=== PATIENT | female | born 1990 | race African-American/Black ===

== ENCOUNTER 2016-07-30 21:27 | Emergency (ER) | payer OTHER ==
[2016-07-30] MEDS ORDERED: ALBUTEROL SO4 0.083% IH SOL 2.5 MG/3 ML VIAL.NEB. NEB ONE (21:32)
[2016-07-30 21:36] VITALS: TEMP 97.8; BMI 50.8
[2016-07-30] MEDS ORDERED: ALBUTEROL SO4 0.5 % INH SOLN 2.5 MG/0.5 ML VIAL.NEB. NEB ONE (21:36)
[2016-07-30] MEDS ORDERED: predniSONE 20 MG TABLET (UD) PO ONE (21:58)
[2016-07-30] MEDS ORDERED: SODIUM CHLORIDE 500 ML IV STA (22:00)
[2016-07-30] MEDS ORDERED: MAGNESIUM SULF 50% (8.12 MEQ/2 ML-1 GM VIAL) IVPB ONE (22:00)
[2016-07-30] MEDS ORDERED: methylPREDNISolone NA SUCC 125 MG/2 ML VIAL IVPB ONE (22:01)
[2016-07-30] MEDS ORDERED: ALBUTEROL SO4 2.5/IPRATROPIUM 0.5 INH SOL 3 ML VIAL.NEB. NEB ONE ×2 (22:17→22:51)
--- NOTE | 2016-07-30 22:20 | PDOC ---
History of Present Illness - General Chief Complaint: Wheezing Stated Complaint: ASTHMA Time Seen by Provider: 07/30/16 21:44 History Source: Patient - History of Present Illness Initial Comments: 07/30/16 22:01 25 year old female with wheezing and cough since 7pm after cigarette exposure. patient reports that last asthma exacerbation 2 months ago. reports multiple admissions to hospital for asthma Past History - Past Medical History Allergies/Adverse Reactions: Allergies Allergy/AdvReac Type Severity Reaction Status Date / Time strawberry Allergy Verified 07/30/16 21:29 SEAFOOD Allergy Vomiting Uncoded 07/30/16 21:29 Home Medications: Ambulatory Orders Prednisone [Deltasone -] 40 mg PO DAILY #8 tablet 07/31/16 Asthma: Yes Suicide Attempt (Hx): No - Immunization History Immunization Up to Date: Yes - Psycho/Social/Smoking Cessation Hx Anxiety: No Suicidal Ideation: No Smoking Status: No Smoking History: Never smoked Have you smoked in the past 12 months: No Number of Cigarettes Smoked Daily: 0 Hx Alcohol Use: No Drug/Substance Use Hx: No Substance Use Type: None Review of Systems - Review of Systems Able to Perform ROS?: Yes Is the patient limited Sinhala proficient: No HEENTM: No: Symptoms Reported, See HPI, Eye Pain, Blurred Vision, Tearing, Recent change in vision, Double Vision, Cataracts, Ear Pain, Ocular Prothesis, Ear Discharge, Nose Pain, Nose Congestion, Tinnitus, Nose Bleeding, Hearing Loss , Throat Pain, Throat Swelling, Mouth Pain, Dental Problems, Difficulty Swallowing, Mouth Swelling, Other Respiratory: Yes: Cough, SOB at Rest, Wheezing Cardiac (ROS): No: Symptoms Reported, See HPI, Chest Pain, Edema, Irregular Heart Rate, Lightheadedness, Palpitations, Syncope, Chest Tightness, Other ABD/GI: No: Symptoms Reported, See HPI, Abdominal Distended, Abd. Pain w/ defecation, Blood Streaked Bowels, Constipated, Diarrhea, Difficulty Swallowing , Nausea, Poor Appetite, Poor Fluid Intake, Rectal Bleeding, Vomiting, Indigestion, Abdominal cramping, Tarry Stools, Other *Physical Exam - Vital Signs Last Vital Signs Temp Pulse Resp BP Pulse Ox 97.8 F 96 H 20 150/90 93 L 07/30/16 21:35 07/30/16 21:35 07/30/16 21:35 07/30/16 21:35 07/30/16 21:35 - Physical Exam General Appearance: Yes: Appropriately Dressed Respiratory/Chest: positive: Decreased Breath Sounds (through out) Cardiovascular: positive: Regular Rhythm, Regular Rate Gastrointestinal/Abdominal: positive: Normal Bowel Sounds, Soft Extremity: positive: Normal Capillary Refill, Normal Inspection, Normal Range of Motion Integumentary: positive: Normal Color, Dry, Warm Neurologic: positive: Fully Oriented, Alert, Normal Mood/Affect ED Treatment Course - LABORATORY CBC & Chemistry Diagram: 07/30/16 22:34 07/30/16 22:34 - Medications Given in the ED: ED Medications Discontinued Medications Generic Name Dose Route Start Last Admin Trade Name Freq PRN Reason Stop Dose Admin Albuterol Sulfate 2 amp 07/30/16 21:36 07/30/16 21:36 Ventolin 0.5% - NEB 07/30/16 21:37 2 amp NOW ONE Administration Progress Note - Progress Note Progress Note: A: asthma exacerbation P: duoneb x3 solumedrol magnesium. *DC/Admit/Observation/Transfer Diagnosis at time of Disposition: Asthma exacerbation - Discharge Dispostion Disposition: HOME - Prescriptions Prescriptions: Prednisone [Deltasone -] 40 mg PO DAILY #8 tablet - Referrals Referrals: Issac Pettit [Primary Care Provider] - - Patient Instructions Printed Discharge Instructions: DI for Asthma -- Adult Additional Instructions: take prednisone as prescribed. take albuterol 2 puffs every 4 hours as needed for cough. follow up with your doctor as soon as possible. - Post Discharge Activity Work/School Note: Back to Work
[2016-07-30] MEDS: ALBUTEROL SO4 2.5/IPRATROPIUM 0.5 INH SOL 3 ML VIAL.NEB. NEB SCH ×3 (22:40→22:45)
[2016-07-30 22:45] LABS: MCH 28.9 pg (25.7-33.7); MCHC 32.8 g/dl (32.0-36.0); MEAN CELL VOLUME 88.2 fl (80-96); MEAN PLT VOLUME 9.3 fl (7.5-11.1); PLATELET COUNT 188 K/MM3 (134-434); RDW 12.3 % (11.6-15.6)
[2016-07-30] MEDS ORDERED: MAGNESIUM SULF 50% (8.12 MEQ/2 ML-1 GM VIAL) ONE (22:51)
[2016-07-30] MEDS ORDERED: methylPREDNISolone NA SUCC 125 MG/2 ML VIAL ONE (22:51)
[2016-07-30 23:07] LABS: ALBUMIN 3.4 g/dl (3.4-5.0); ANION GAP 10 (8-16); CALCIUM 8.4 mg/dL (8.5-10.1); CO2 25 mmol/L (21-32); CREATININE 0.8 mg/dL (0.55-1.02); GLUCOSE,RANDOM 111 mg/dL (74-106); SGOT/AST 14 U/L (15-37); SGPT/ALT 20 U/L (12-78)
[2016-07-30 23:09] LABS: ALK PHOS 59 U/L (45-117); BILIRUBIN,TOTAL 0.4 mg/dL (0.2-1.0); TOT PROT 6.9 g/dl (6.4-8.2)
--- NOTE | 2016-07-30 23:12 | PDOC ---
*Physical Exam - Vital Signs Last Vital Signs Temp Pulse Resp BP Pulse Ox 97.8 F 96 H 20 150/90 93 L 07/30/16 21:35 07/30/16 21:35 07/30/16 21:35 07/30/16 21:35 07/30/16 21:35 ED Treatment Course - LABORATORY CBC & Chemistry Diagram: 07/30/16 22:34 07/30/16 22:34 - ADDITIONAL ORDERS Additional order review: Laboratory Results 07/30/16 22:34 Serum , Qual Negative 07/30/16 22:34 RBC 4.55 MCV 88.2 MCHC 32.8 RDW 12.3 MPV 9.3 - Medications Given in the ED: ED Medications Discontinued Medications Generic Name Dose Route Start Last Admin Trade Name Manny PRN Reason Stop Dose Admin Albuterol Sulfate 2 amp 07/30/16 21:36 07/30/16 21:36 Ventolin 0.5% - NEB 07/30/16 21:37 2 amp NOW ONE Administration Albuterol/Ipratropium 1 amp 07/30/16 22:00 07/30/16 22:41 Duoneb - NEB 07/30/16 22:46 1 amp Q15M KEDAR Administration Sodium Chloride 500 mls @ 500 mls/hr 07/30/16 22:00 07/30/16 22:55 Normal Saline - IV 07/30/16 22:59 500 mls/hr ASDIR STA Administration Magnesium Sulfate 2 gm 07/30/16 22:00 07/30/16 22:50 Magnesium Sulfate IVPB 07/30/16 22:01 2 gm ONCE ONE Administration Methylprednisolone Sodium Succinate 125 mg 07/30/16 22:01 07/30/16 22:50 Solu-Medrol - IVPB 07/30/16 22:02 125 mg ONCE ONE Administration Prednisone 60 mg 07/30/16 21:58 07/30/16 23:08 Deltasone - PO 07/30/16 21:59 Not Given ONCE ONE Medical Decision Making - Medical Decision Making 07/30/16 23:11 agree with care from KIMBERLY Cabral *DC/Admit/Observation/Transfer Diagnosis at time of Disposition: Asthma exacerbation - Prescriptions Prescriptions: Prednisone [Deltasone -] 40 mg PO DAILY #8 tablet Albuterol 0.083% Nebulizer Eva [Ventolin 0.083% Nebulizer Soln -] 1 neb NEB Q4H #100 vial - Referrals Referrals: Issac Pettit [Primary Care Provider] - - Patient Instructions Printed Discharge Instructions: DI for Asthma -- Adult Additional Instructions: take prednisone as prescribed. take albuterol 2 puffs every 4 hours as needed for cough. follow up with your doctor as soon as possible. - Post Discharge Activity Work/School Note: Back to Work
[2016-07-31] MEDS ORDERED: ALBUTEROL SO4 6.7 GM HFA INHALER IH ONE (00:26)
[2016-07-31 00:56] VITALS: BP 120/74; PULSE 80
== END 2016-07-31 02:46 | disposition home or self-care (01) ==
LOC: JER 21:27
PROC: 3E0F7GC Introduction of Other Therapeutic Substance into Respiratory Tract, Via Natural or Artificial Opening (ICD-10-PCS; principal; 2016-07-30)
PROC: 3E0F7GC Introduction of Other Therapeutic Substance into Respiratory Tract, Via Natural or Artificial Opening (ICD-10-PCS; 2016-07-30)
PROC: 3E0F7GC Introduction of Other Therapeutic Substance into Respiratory Tract, Via Natural or Artificial Opening (ICD-10-PCS; 2016-07-30)
PROC: 3E0337Z Introduction of Electrolytic and Water Balance Substance into Peripheral Vein, Percutaneous Approach (ICD-10-PCS; 2016-07-30)
PROC: 3E0333Z Introduction of Anti-inflammatory into Peripheral Vein, Percutaneous Approach (ICD-10-PCS; 2016-07-30)
PROC: 3E033GC Introduction of Other Therapeutic Substance into Peripheral Vein, Percutaneous Approach (ICD-10-PCS; 2016-07-30)
DX: J45.901 Unspecified asthma with (acute) exacerbation (principal); Z77.22 Contact with and (suspected) exposure to environmental tobacco smoke (acute) (chronic)
CPT/HCPCS: 36415; 80053; 84703; 85027; 99282-25

== ENCOUNTER 2016-09-24 09:49 | Emergency (ER) | payer OTHER ==
[2016-09-24 09:55] VITALS: BP 141/86; PULSE 98; TEMP 98.2; BMI 45.5
[2016-09-24] MEDS ORDERED: KETOROLAC TROMETHAMINE 60 MG/2 ML VIAL IM ONE (10:25)
--- NOTE | 2016-09-24 10:29 | PDOC ---
History of Present Illness - General Chief Complaint: Cold Symptoms Stated Complaint: COLD SYMPTOMS Time Seen by Provider: 09/24/16 10:05 History Source: Patient Exam Limitations: No Limitations - History of Present Illness Initial Comments: 09/24/16 10:25 Patient is here with complaints of cough and cold-like symptoms for the next 2 days. States temperature last night was 103, took Tylenol with some resolved. States has body aches a lot of postnasal drainage, and a moist cough that is nonproductive. 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 Timing/Duration: reports: getting worse Severity: reports: mild, moderate Associated Symptoms: reports: chest pain/soreness, cough, fever/chills, headache , nasal congestion, nasal drainage, sore throat Past History - Travel Traveled outside of the country in the last 30 days: No Close contact w/someone who was outside of country & ill: No - Past Medical History Allergies/Adverse Reactions: Allergies Allergy/AdvReac Type Severity Reaction Status Date / Time strawberry Allergy Verified 09/24/16 09:51 SEAFOOD Allergy Vomiting Uncoded 09/24/16 09:51 Home Medications: Ambulatory Orders Albuterol 0.083% Nebulizer Eva [Ventolin 0.083% Nebulizer Soln -] 1 neb NEB Q4H #100 vial 07/31/16 Prednisone [Deltasone -] 40 mg PO DAILY #8 tablet 07/31/16 Naproxen [Naprosyn -] 500 mg PO BID #30 tablet 09/24/16 Asthma: Yes Suicide Attempt (Hx): No - Immunization History Immunization Up to Date: Yes - Psycho/Social/Smoking Cessation Hx Anxiety: No Suicidal Ideation: No Smoking Status: No Smoking History: Never smoked Have you smoked in the past 12 months: No Number of Cigarettes Smoked Daily: 0 Hx Alcohol Use: No Drug/Substance Use Hx: No Substance Use Type: None Review of Systems - Review of Systems Able to Perform ROS?: Yes Is the patient limited Greenlandic proficient: Yes Constitutional: Yes: Symptoms Reported, See HPI, Chills, Fever, Loss of Appetite , Malaise, Weakness HEENTM: Yes: Symptoms Reported, See HPI, Nose Congestion, Throat Pain Respiratory: Yes: Symptoms reported, See HPI, Cough (nonproductive). No: Shortness of Breath, Wheezing Musculoskeletal: No: Symptoms Reported Integumentary: Yes: See HPI. No: Symptoms Reported Neurological: Yes: Symptoms reported, See HPI, Headache (frontal) All Other Systems: Reviewed and Negative *Physical Exam - Vital Signs Last Vital Signs Temp Pulse Resp BP Pulse Ox 98.2 F 98 H 19 141/86 97 09/24/16 09:51 09/24/16 09:51 09/24/16 09:51 09/24/16 09:51 09/24/16 09:51 - Physical Exam General Appearance: Yes: Nourished, Appropriately Dressed, Apparent Distress HEENT: positive: CRISTOBAL, Normal ENT Inspection, TMs Normal (left occluded with cerumen, right congested but easily visualize landmarks), Pharynx Normal (no swellign or exudate), Rhinorrhea (clear), Sinus Tenderness (mild frontal) Neck: positive: Supple, Lymphadenopathy (R), Lymphadenopathy (L). negative: Tender Respiratory/Chest: positive: Lungs Clear (course but clear), Normal Breath Sounds Cardiovascular: positive: Regular Rate Gastrointestinal/Abdominal: positive: Normal Bowel Sounds, Soft. negative: Tender Musculoskeletal: positive: Normal Inspection. 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 We'll treat patient conservatively as there is no indication for bacterial infection *DC/Admit/Observation/Transfer Diagnosis at time of Disposition: URI, acute - Discharge Dispostion Disposition: HOME Condition at time of disposition: Stable Admit: No - Referrals Referrals: Issac Pettit [Primary Care Provider] - - Patient Instructions Printed Discharge Instructions: DI for Viral Upper Respiratory Infection -- Adult Additional Instructions: Rest, drink lots of fluids: Teas, water, soups, Pedialyte Saltwater gargles Steamy showers/seem to face break up mucus Avoid contact with others until fevers and cough resolved Lots of handwashing and good hygiene Continue [id number] medications for symptomatic relief Tylenol or Motrin for fever and pain Followup with private physician in one to 2 days as needed Return to emergency department for worsened symptoms, fevers, dehydration - Post Discharge Activity Work/School Note: Back to Work
[2016-09-24] MEDS ORDERED: KETOROLAC TROMETHAMINE 60 MG/2 ML VIAL ONE (10:31)
== END 2016-09-24 11:30 | disposition home or self-care (01) ==
LOC: JERFT 09:49
PROC: 3E0233Z Introduction of Anti-inflammatory into Muscle, Percutaneous Approach (ICD-10-PCS; principal; 2016-09-24)
DX: J06.9 Acute upper respiratory infection, unspecified (principal); B97.89 Other viral agents as the cause of diseases classified elsewhere
CPT/HCPCS: 87070; 87430; 87804; 99281-25

== ENCOUNTER 2016-09-25 22:46 | Emergency (ER) | payer OTHER ==
[2016-09-25 22:59] VITALS: BP 140/94; PULSE 99; TEMP 97.9; BMI 44.9
[2016-09-26] MEDS ORDERED: SODIUM CHLORIDE 1,000 ML IV STA (00:12)
[2016-09-26] MEDS ORDERED: OXYCODONE/APAP 5/325MG COMBO TABLET PO ONE (00:13)
[2016-09-26] MEDS ORDERED: OXYCODONE/APAP 5/325MG COMBO TABLET ONE (00:27)
[2016-09-26 00:46] LABS: BASOPHIL 0.2 % (0-2.0); EOSINOPHIL 2.3 % (0-4.5); MCH 29.2 pg (25.7-33.7); MCHC 32.6 g/dl (32.0-36.0); MEAN CELL VOLUME 89.6 fl (80-96); MEAN PLT VOLUME 9.5 fl (7.5-11.1); NEUTROPHILS 65.3 % (42.8-82.8); PLATELET COUNT 180 K/MM3 (134-434); RDW 12.4 % (11.6-15.6); WHITE BLOOD COUNT 10.4 K/mm3 (4.0-10.0)
--- NOTE | 2016-09-26 00:47 | PDOC ---
History of Present Illness - History of Present Illness Initial Comments: 09/26/16 00:41 25 yo F with h/o morbid obesity, and recent viral URI who presents with sore throat. Recently evaluated in ED yesterday for pharyngitis. Pt. returns to ED with worsening symptoms of odynophagia, and yellow sputum production. Also endorses left sided nasal congestion, otalgia, cough, rhinorrhea, lacrimation. States that she had elevated oral temp 24 hours ago (103). Pain not alleviated with OTC Motrin and Tylenol. <Lane Zuluaga - Last Filed: 09/26/16 01:12> <Armida Myers - Last Filed: 09/26/16 01:36> - General Chief Complaint: Pain Stated Complaint: COLD SYMPTOMS Time Seen by Provider: 09/25/16 23:53 Past History - Past Medical History Asthma: Yes Suicide Attempt (Hx): No - Immunization History Immunization Up to Date: Yes - Psycho/Social/Smoking Cessation Hx Anxiety: No Suicidal Ideation: No Smoking Status: No Smoking History: Never smoked Have you smoked in the past 12 months: No Number of Cigarettes Smoked Daily: 0 Information on smoking cessation initiated: No Hx Alcohol Use: No Drug/Substance Use Hx: No Substance Use Type: None <Lane Zuluaga - Last Filed: 09/26/16 01:12> <Armida Myers - Last Filed: 09/26/16 01:36> - Past Medical History Allergies/Adverse Reactions: Allergies Allergy/AdvReac Type Severity Reaction Status Date / Time strawberry Allergy Verified 09/25/16 22:57 SEAFOOD Allergy Vomiting Uncoded 09/25/16 22:57 Home Medications: Ambulatory Orders Albuterol 0.083% Nebulizer Eva [Ventolin 0.083% Nebulizer Soln -] 1 neb NEB Q4H #100 vial 07/31/16 Prednisone [Deltasone -] 40 mg PO DAILY #8 tablet 07/31/16 Naproxen [Naprosyn -] 500 mg PO BID #30 tablet 09/24/16 *Physical Exam - Vital Signs Last Vital Signs Temp Pulse Resp BP Pulse Ox 97.9 F 99 H 19 140/94 99 09/25/16 22:57 09/25/16 22:57 09/25/16 22:57 09/25/16 22:57 09/25/16 22:57 - Physical Exam Comments: 09/26/16 00:58 GENERAL: Awake, alert, and fully oriented, in no acute distress HEAD: No signs of trauma, normocephalic, atraumatic EYES: PERRLA, EOMI, sclera anicteric, conjunctiva clear ENT: Neck TTP. Auricles normal inspection, hearing grossly normal, nares patent , oropharynx clear without exudates. Moist mucosa NECK: Normal ROM, supple, no lymphadenopathy, JVD, or masses LUNGS: No distress, speaks full sentences, clear to auscultation bilaterally HEART: Regular rate and rhythm, normal S1 and S2, no murmurs, rubs or gallops, peripheral pulses normal and equal bilaterally. ABDOMEN: Soft, nontender, normoactive bowel sounds. No guarding, no rebound. No masses EXTREMITIES: Normal inspection, Normal range of motion, no edema. No clubbing or cyanosis. NEUROLOGICAL: Cranial nerves II through XII grossly intact. Normal speech, normal gait, no focal sensorimotor deficits SKIN: Warm, Dry, normal turgor, no rashes or lesions noted. <Lane Zuluaga - Last Filed: 09/26/16 01:12> - Vital Signs Last Vital Signs Temp Pulse Resp BP Pulse Ox 97.9 F 99 H 19 140/94 99 09/25/16 22:57 09/25/16 22:57 09/25/16 22:57 09/25/16 22:57 09/26/16 01:12 <Armida Myers - Last Filed: 09/26/16 01:36> ED Treatment Course - LABORATORY CBC & Chemistry Diagram: 09/26/16 00:15 09/26/16 00:15 - Medications Given in the ED: ED Medications Discontinued Medications Generic Name Dose Route Start Last Admin Trade Name Freq PRN Reason Stop Dose Admin Oxycodone/Acetaminophen 1 combo 09/26/16 00:13 09/26/16 00:25 Percocet 5/325 - PO 09/26/16 00:14 1 combo ONCE ONE Administration <Lane Zuluaga - Last Filed: 09/26/16 01:12> - LABORATORY CBC & Chemistry Diagram: 09/26/16 00:15 09/26/16 00:15 - ADDITIONAL ORDERS Additional order review: Laboratory Results 09/26/16 09/26/16 00:15 00:13 Sodium 142 Potassium 3.5 Chloride 106 Carbon Dioxide 29 Anion Gap 7 L BUN 13 Creatinine 0.7 Creat Clearance w eGFR > 60 Random Glucose 87 D Calcium 8.6 Total Bilirubin 0.4 AST 12 L ALT 18 Alkaline Phosphatase 59 Total Protein 6.9 Albumin 3.7 Urine Color Yellow Urine Appearance Slcloudy Urine pH 5.0 Urine Protein 1+ H Urine Glucose (UA) Negative Urine Ketones Negative Urine Blood 1+ H Urine Nitrite Negative Urine Bilirubin Negative Urine Urobilinogen 4.0 e.u/dl H Ur Leukocyte Esterase Trace Urine RBC 1 Urine WBC 2 Ur Epithelial Cells Many Urine Bacteria Rare Urine Mucus Few 09/26/16 00:15 RBC 4.40 MCV 89.6 MCHC 32.6 RDW 12.4 MPV 9.5 Neutrophils % 65.3 D Lymphocytes % 18.9 D Monocytes % 13.3 H D Eosinophils % 2.3 D Basophils % 0.2 - Medications Given in the ED: ED Medications Discontinued Medications Generic Name Dose Route Start Last Admin Trade Name Manny PRN Reason Stop Dose Admin Sodium Chloride 1,000 mls @ 1,000 mls/hr 09/26/16 00:12 09/26/16 00:36 Normal Saline - IV 09/26/16 01:11 1,000 mls/hr ASDIR STA Administration Oxycodone/Acetaminophen 1 combo 09/26/16 00:13 09/26/16 00:25 Percocet 5/325 - PO 09/26/16 00:14 1 combo ONCE ONE Administration <Armida Myers - Last Filed: 09/26/16 01:36> Medical Decision Making - Medical Decision Making 09/26/16 00:58 26 yo F h/o morbid obesity and recent viral URI presents with sore throat. Pt. afebrile on presentation and physical exam benign. Stated that OTC analgesia has been infective at alleviating pain. Recent strep and influenza negative. Low suspicion for bacterial URI. Pt. endorses low fluid intake within 24 hours. DDx: Viral URI, dehydration ED course: CBC, CMP NS 1 L Percocet PO CBC, CMP, UA unremarkable <Lane Zuluaga - Last Filed: 09/26/16 01:12> *DC/Admit/Observation/Transfer <Lane Zuluaga - Last Filed: 09/26/16 01:12> - Discharge Dispostion Admit: No <Armida Myers - Last Filed: 09/26/16 01:36> Diagnosis at time of Disposition: Viral URI, Pharyngeal pain - Discharge Dispostion Disposition: HOME Condition at time of disposition: Stable - Referrals Referrals: Issac Pettit [Primary Care Provider] - - Patient Instructions Printed Discharge Instructions: DI for Viral Pharyngitis - Post Discharge Activity Work/School Note: Back to Work
[2016-09-26 00:58] LABS: URINE APPEARANCE SLCLOUDY; URINE BILIRUBIN NEGATIVE (NEGATIVE); URINE BLOOD 1+ (NEGATIVE); URINE COLOR YELLOW; URINE GLUCOSE (UA) NEGATIVE (NEGATIVE); URINE KETONE NEGATIVE (NEGATIVE); URINE LEUK ESTERASE TRACE (NEGATIVE); URINE NITRITE NEGATIVE (NEGATIVE); URINE UROBILINOGEN 4.0 E.U/dl mg/dL (0.2-1.0)
[2016-09-26 01:00] LABS: URINE PROTEIN 1+ (NEGATIVE)
[2016-09-26 01:02] LABS: URINE BACTERIA RARE /hpf (NONE SEEN); URINE MUCUS FEW; URINE RBC 1 /hpf (0-3); URINE WBC 2 /hpf (3-5)
[2016-09-26 01:05] LABS: ALBUMIN 3.7 g/dl (3.4-5.0); ALK PHOS 59 U/L (45-117); ANION GAP 7 (8-16); BILIRUBIN,TOTAL 0.4 mg/dL (0.2-1.0); CALCIUM 8.6 mg/dL (8.5-10.1); CO2 29 mmol/L (21-32); CREATININE 0.7 mg/dL (0.55-1.02); GLUCOSE,RANDOM 87 mg/dL (74-106); SGOT/AST 12 U/L (15-37); SGPT/ALT 18 U/L (12-78); TOT PROT 6.9 g/dl (6.4-8.2)
--- NOTE | 2016-09-26 01:23 | PDOC ---
Attending Attestation - Resident Resident Name: Lane Zuluaga - HPI HPI: 09/26/16 01:22 Pt comes with complaint of sore throat; she was seen here yesterday and diagnosed with viral pharyngitis. SHe is afebrile now and appears well. - Physicial Exam PE: 09/26/16 05:34 agree with exam of resident. Left TM occluded with wax; right TM normal. Pt has no pharyngeal erythema. Afebrile. No esophageal pain/ no sign of bacterial tracheitis. - Medical Decision Making 09/26/16 05:34 Pt has pharyngeal viral infection. No need for treatment other than pain meds. She has no fever at this time, no chills, no infection in her ears. Pt is requesting days off from work until Wednesday. Pt will be given days so that she may rest.
== END 2016-09-26 01:59 | disposition home or self-care (01) ==
LOC: JER 22:46
DX: J06.9 Acute upper respiratory infection, unspecified (principal); B97.89 Other viral agents as the cause of diseases classified elsewhere; E66.01 Morbid (severe) obesity due to excess calories; Z68.42 Body mass index [BMI] 45.0-49.9, adult
CPT/HCPCS: 36415; 80053; 81003; 81015; 85025; 99282-25

== ENCOUNTER 2016-12-18 10:28 | Emergency (ER) | payer OTHER ==
[2016-12-18 10:38] VITALS: BP 130/77; PULSE 70; TEMP 97.8; BMI 49.4
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
== END 2016-12-18 12:47 | disposition home or self-care (01) ==
LOC: JERFT 10:28
DX: S90.32XA Contusion of left foot, initial encounter (principal); Y00.XXXA Assault by blunt object, initial encounter; Y93.89 Activity, other specified; Y92.118 Other place in children's home and orphanage as the place of occurrence of the external cause; Y99.0 Civilian activity done for income or pay
CPT/HCPCS: 73630-TC-LT; 99281-25

== ENCOUNTER 2017-06-14 18:14 | Emergency (ER) | payer OTHER ==
[2017-06-14 18:18] VITALS: BMI 40.8
--- NOTE | 2017-06-14 18:19 | PDOC ---
Rapid Medical Evaluation Time Seen by Provider: 06/14/17 18:15 Medical Evaluation: Allergies Allergy/AdvReac Type Severity Reaction Status Date / Time strawberry Allergy Verified 06/14/17 18:15 SEAFOOD Allergy Vomiting Uncoded 06/14/17 18:15 04 18:15 I have performed a brief in-person evaluation of this patient. The patient presents with a chief complaint of:s/p gastric sleeve 3 weeks ago at [facility], p/w upper abd pain x 3 days, taking famotidine and gas-x with no relief , taking colace for constipation, no n/v/f, has surgery appt next month Pertinent physical exam findings:poorly localized ttp to upper abd I have ordered the following:labs The patient will proceed to the ED for further evaluation. 06/14/17 18:18
--- NOTE | 2017-06-14 18:31 | PDOC ---
History of Present Illness - General Chief Complaint: Pain Stated Complaint: PAIN/GASTRIC SLEEVE Time Seen by Provider: 06/14/17 18:15 History Source: Patient Exam Limitations: No Limitations - History of Present Illness Initial Comments: Pt is a 26F with PMHx of asthma, s/p gastric sleeve at [facility] 3 weeks ago, now presenting with heartburn. Pt describes burning sensation after eating soft foods and soups. The pain is 8/ 10 radiating to L back. The back pain feels like "something is stuck" and is relieved by having her back massaged, and jumping up and down. At 2weeks Post- op follow up with her bariatric surgeon, she had no complaints. She was in contact recently with the bariatric surgeons and asked to use antacids, with no relief with gasx and H2 antagonist. No fever, no chills, no palpitations or SOB. 06/14/17 18:52 06/14/17 19:11 06/14/17 19:21 Timing/Duration: intermittent Severity: moderate Modifying Factors: improves with: eating (worsened by eating) Associated Symptoms: reports: cough (associated non productive cough with the stuck sensation). denies: chest pain, fever/chills, loss of appetite, nausea/ vomiting, seizure, shortness of breath, syncope, weakness Past History - Travel Close contact w/someone who was outside of country & ill: No - Past Medical History Allergies/Adverse Reactions: Allergies Allergy/AdvReac Type Severity Reaction Status Date / Time strawberry Allergy Verified 06/14/17 18:15 SEAFOOD Allergy Vomiting Uncoded 06/14/17 18:15 Home Medications: Ambulatory Orders Multivitamin [Poly-Vitamin] 14 tab PO DAILY 06/14/17 Pantoprazole Sodium [Protonix -] 40 mg PO DAILY #7 tablet.ec 06/14/17 Asthma: Yes COPD: No Other medical history: MORBIDE OBESTIY - Surgical History Abdominal Surgery: Yes (GASTRIC SLEEVE) - Immunization History Immunization Up to Date: Yes - Suicide/Smoking/Psychosocial Hx Smoking Status: No Smoking History: Never smoked Have you smoked in the past 12 months: No Number of Cigarettes Smoked Daily: 0 Information on smoking cessation initiated: No Hx Alcohol Use: No Drug/Substance Use Hx: No Substance Use Type: None Review of Systems - Review of Systems Able to Perform ROS?: Yes Is the patient limited Ukrainian proficient: No Constitutional: Yes: Other (patient has lost 37lbs following the gastric sleeve 3 weeks ago). No: Chills, Diaphoresis, Fever, Loss of Appetite, Night Sweats, Weakness HEENTM: No: Throat Pain, Throat Swelling, Difficulty Swallowing, Other (feels food is stuck in chest) Respiratory: Yes: Cough (dry cough attempted to push out stuck food). No: Shortness of Breath, SOB at Rest Cardiac (ROS): No: Chest Pain, Edema, Syncope ABD/GI: Yes: Constipated (pt has been constipated on colace since after the sx) . No: Abdominal Distended, Blood Streaked Bowels, Poor Appetite, Vomiting : No: Burning, Dysuria, Hematuria Musculoskeletal: Yes: Back Pain (following food, relieved by massaging back) Integumentary: No: Bruising Neurological: No: Numbness, Paresthesia, Dizziness *Physical Exam - Vital Signs Last Vital Signs Temp Pulse Resp BP Pulse Ox 98.0 F 86 18 148/104 100 06/14/17 18:16 06/14/17 18:16 06/14/17 18:16 06/14/17 18:16 06/14/17 18:16 - Physical Exam General Appearance: Yes: Obese HEENT: positive: Pharynx Normal. negative: Pale Conjunctivae, Scleral Icterus ( L), Tonsillar Exudate Neck: positive: Supple Respiratory/Chest: positive: Lungs Clear, Normal Breath Sounds Cardiovascular: positive: Regular Rate, S1, S2 Gastrointestinal/Abdominal: positive: Tender (TTP epigastrium), Soft Extremity: negative: Pedal Edema, Swelling Integumentary: positive: Warm Neurologic: positive: Fully Oriented, Alert, Motor Strength 5/5 ED Treatment Course - LABORATORY CBC & Chemistry Diagram: 06/14/17 18:30 06/14/17 18:30 Medical Decision Making - Medical Decision Making With hx of gastric sleeve 3 weeks ago-dyspepsia is a known early and late complication. Pt spoke with the service of her bariatric surgeon and was asked to use antacids , -gasx and H2 lulu that did not seem to relieve her symptoms CBC- currently does not show leucocytosis or UA likely UTI Plan is to give iv pantoprazole 40mg and observe, and do EKG since she has elevated BP, and is obese to R/O ACS 06/14/17 19:07 We attempted to contact her surgeon, Dr Luevano at [facility] and they can only send messages to get back 24-48hrs. We wanted to clarify if we needed to image her for rupture, fluid, hematoma or abscess at the site. 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 Pt says she feels better after pantoprazole and wants to go home. We explained that we are trying to talk with a surgeon to see if they think she may have a more severe complication following the surgery that may require imaging such as CT w/contrast Lipase is within normal 06/14/17 20:43 06/14/17 20:48 Patient feels much better with protonix. She says she will be in the bariatric surgeon's office tomorrow to follow up since we have still not heard back form [facility]. She will follow up closely with him in the future. We will give her protonix PO and discharge her *DC/Admit/Observation/Transfer Diagnosis at time of Disposition: Heart burn - Discharge Dispostion Disposition: HOME Condition at time of disposition: Improved Admit: No - Prescriptions Prescriptions: Pantoprazole Sodium [Protonix -] 40 mg PO DAILY #7 tablet.ec - Referrals Referrals: Issac Pettit [Primary Care Provider] - - Patient Instructions Printed Discharge Instructions: Mini Gastric Bypass Additional Instructions: You came in with a history of heartburn that started 3 days ago. You recently had gastric sleeve surgery. We gave you protonix (an antacid) and you felt better. We tried to contact your bariatric surgeon to discuss your case with him but could not get in touch him Please follow up with him tomorrow as you have decided Follow up closely with your surgeon and discuss any new issues you notice with him We will send you home on 40mg pantoprazole to take by mouth daily Please follow up with your primary care doctor If you start to vomit, vomit blood, have chest pain and difficulty breathing or have high grade fever please go to the emergency room - Post Discharge Activity - Attestations Physician Attestion: 06/14/17 20:56 Komal Marshall MD
[2017-06-14] MEDS ORDERED: PANTOPRAZOLE SODIUM 40 MG VIAL IVPUSH ONE (18:50)
[2017-06-14] MEDS ORDERED: PANTOPRAZOLE SODIUM 40 MG/100 ML BAG IVPB ONE (18:56)
[2017-06-14 18:57] LABS: BASO % 0.6 % (0-2.0); EOS % 2.7 % (0-4.5); HEMATOCRIT 42.2 % (32.4-45.2); HEMOGLOBIN 14.3 GM/dL (10.7-15.3); LYMPH % 35.1 % (8-40); MCH 30.1 pg (25.7-33.7); MEAN CELL VOLUME 88.5 fl (80-96); MEAN PLT VOLUME 9.5 fl (7.5-11.1); MONO % 8.4 % (3.8-10.2); NEUT % 53.2 % (42.8-82.8); PLATELET COUNT 263 K/MM3 (134-434); RBC 4.77 M/mm3 (3.60-5.2); RDW 13.1 % (11.6-15.6); WHITE BLOOD COUNT 6.6 K/mm3 (4.0-10.0)
[2017-06-14 19:00] LABS: URINE APPEARANCE SLCLOUDY; URINE BLOOD NEGATIVE (NEGATIVE); URINE COLOR AMBER; URINE GLUCOSE (UA) NEGATIVE (NEGATIVE); URINE KETONE TRACE (NEGATIVE); URINE LEUK ESTERASE NEGATIVE (NEGATIVE); URINE NITRITE NEGATIVE (NEGATIVE); URINE UROBILINOGEN 4.0 E.U/dl mg/dL (0.2-1.0)
[2017-06-14 19:01] LABS: HCG,QUALITATIVE URINE NEGATIVE
[2017-06-14 19:05] LABS: URINE PROTEIN 1+ (NEGATIVE)
[2017-06-14 19:06] LABS: EPI CELLS RARE /HPF (FEW); URINE MUCUS MANY
[2017-06-14 19:26] LABS: ALBUMIN 3.8 g/dl (3.4-5.0); ANION GAP 5 (8-16); BLOOD UREA NITROGEN 6 mg/dL (7-18); CHLORIDE 108 mmol/L (98-107); CO2 28 mmol/L (21-32); CREATININE 0.8 mg/dL (0.55-1.02); GLUCOSE,RANDOM 96 mg/dL (74-106); POTASSIUM 3.7 mmol/L (3.5-5.1); SGOT/AST 16 U/L (15-37); SGPT/ALT 23 U/L (12-78); SODIUM 141 mmol/L (136-145)
[2017-06-14 19:27] LABS: ALK PHOS 43 U/L (45-117); BILIRUBIN,TOTAL 0.2 mg/dL (0.2-1.0); TOT PROT 7.3 g/dl (6.4-8.2)
--- NOTE | 2017-06-14 19:40 | PDOC ---
Attending Attestation - Resident Resident Name: Komal Marshall I - ED Attending Attestation I have performed the following: I have examined & evaluated the patient, The case was reviewed & discussed with the resident, I agree w/resident's findings & plan, Exceptions are as noted - HPI HPI: 06/14/17 19:37 Ms Sanchez is a 26 yo F with a history of asthma and morbid obesity who is 3 weeks s/p gastric sleeve who presents to the ER with a complaint of heart burn. Pt notes burning sensation after eating soft foods and soups. The pain is 8/10 radiating to L back. The back pain feels like "something is stuck" and is relieved by having her back massaged, and jumping up and down. Pt was seen in post op follow up by her surgeon, at that time, had no complaints She contact her surgeon regarding her symptoms, was told to use antacids States she got no relief. No fever, no chills, no chest pain, no palpitations or SOB. - Physicial Exam PE: 06/14/17 19:39 Physical Exam General Appearance: Yes: Obese HEENT: positive: Pharynx Normal. negative: Pale Conjunctivae, Scleral Icterus ( L), Tonsillar Exudate Neck: positive: Supple Respiratory/Chest: positive: Lungs Clear, Normal Breath Sounds Cardiovascular: positive: Regular Rate, S1, S2 Gastrointestinal/Abdominal: positive: Tender (TTP epigastrium), Soft Extremity: negative: Pedal Edema, Swelling Integumentary: positive: Warm Neurologic: positive: Fully Oriented, Alert, Motor Strength 5/5 - Medical Decision Making 06/14/17 19:40 Laboratory Tests 06/14/17 06/14/17 06/14/17 18:30 18:30 18:30 WBC 6.6 D Hgb 14.3 D Hct 42.2 Plt Count 263 D Sodium 141 Potassium 3.7 Chloride 108 H Carbon Dioxide 28 Anion Gap 5 L BUN 6 L Creatinine 0.8 Random Glucose 96 Urine Blood Negative Urine Nitrite Negative Ur Leukocyte Esterase Negative Urine WBC (Auto) 3 Urine RBC (Auto) 1 Urine HCG, Qual Negative 06/14/17 19:50 Will attempt to contact this patient's surgeon Will strongly consider imaging 06/15/17 03:53 Pt reported upon re assessment that she felt much better He pain had completely resolved She will see her surgeon tomorrow Will discharge on Protonix ? gastritis
[2017-06-14 20:11] LABS: LIPASE 130 U/L (73-393)
[2017-06-14 21:17] VITALS: BP 130/98; PULSE 80; TEMP 98.2
[2017-06-15] MEDS ORDERED: PANTOPRAZOLE 40 MG TABLET (FP) PO SCH (10:00)
--- NOTE | 2017-06-15 16:52 | EKG ---
Test Reason : Blood Pressure : / mmHG Vent. Rate : 074 BPM Atrial Rate : 074 BPM P-R Int : 146 ms QRS Dur : 094 ms QT Int : 354 ms P-R-T Axes : 022 -03 014 degrees QTc Int : 392 ms NORMAL SINUS RHYTHM NORMAL ECG NO PREVIOUS ECGS AVAILABLE Confirmed by MD Wilmer, Morris ([id number]) on 06/15/2017 4:51:56 PM Referred By: Confirmed By:Morris Guillen MD
== END 2017-06-14 21:17 | disposition home or self-care (01) ==
LOC: JER 18:14
PROC: 3E033GC Introduction of Other Therapeutic Substance into Peripheral Vein, Percutaneous Approach (ICD-10-PCS; principal; 2017-06-14)
DX: R10.13 Epigastric pain (principal); Z98.84 Bariatric surgery status; Z87.09 Personal history of other diseases of the respiratory system
CPT/HCPCS: 36415; 80053; 81003; 81015; 83690; 84703; 85025; 93005; 93010; 96374; 99283-25

== ENCOUNTER 2017-06-27 09:59 | Emergency (ER) | payer OTHER | END 2017-06-27 11:43 | disposition home or self-care (01) | LOC: JERFT 09:59 | DX: J02.9 Acute pharyngitis, unspecified (principal) | CPT/HCPCS: 99281-25 ==

== ENCOUNTER 2018-05-11 18:08 | Emergency (ER) | payer OTHER ==
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
[2018-05-11 18:25] VITALS: BP 121/82; PULSE 68; TEMP 99; BMI 35.9
[2018-05-11] MEDS ORDERED: ACETAMINOPHEN 500 MG TABLET (FP) PO ONE (18:41)
[2018-05-11] MEDS ORDERED: ACETAMINOPHEN 325 MG TABLET (FP) ONE (18:46)
== END 2018-05-11 18:57 | disposition home or self-care (01) ==
LOC: FER 18:08
DX: Z04.2 Encounter for examination and observation following work accident (principal); M54.5 Low back pain; T65.91XA Toxic effect of unspecified substance, accidental (unintentional), initial encounter; W20.8XXA Other cause of strike by thrown, projected or falling object, initial encounter; Y93.89 Activity, other specified; Y92.159 Unspecified place in reform school as the place of occurrence of the external cause; Y99.0 Civilian activity done for income or pay
CPT/HCPCS: 99281-25

== ENCOUNTER 2018-10-11 23:35 | Emergency (ER) | payer OTHER | END 2018-10-12 01:46 | disposition home or self-care (01) | LOC: JER 23:35 ==

== ENCOUNTER 2018-12-05 23:28 | Emergency (ER) | payer OTHER ==
[2018-12-06 00:44] VITALS: BP 120/81; PULSE 82; TEMP 98.4; BMI 33.3
--- NOTE | 2018-12-06 01:12 | PDOC ---
Attending Attestation - Resident Resident Name: PujaJavy calvillo - ED Attending Attestation I have performed the following: I have examined & evaluated the patient, The case was reviewed & discussed with the resident, I agree w/resident's findings & plan - HPI HPI: 12/06/18 05:08 see resident hpi - Physicial Exam PE: 12/06/18 05:09 agree with resident exam - Medical Decision Making 12/06/18 05:09 28-year-old gravid female with right-sided pelvic/abdominal pain Ultrasound of the gallbladder shows sludge Pelvic ultrasound consistent with live twin gestation Appendix not visualized On reevaluation at 5 AM patient is nontender and pain-free Urinalysis consistent with urinary tract infection We will discharge on antibiotics, outpatient surgical consultation recommended
--- NOTE | 2018-12-06 01:13 | PDOC ---
History of Present Illness - General Chief Complaint: Pain Stated Complaint: 15 WEEKS WITH ABD PAIN Time Seen by Provider: 12/06/18 01:12 - History of Present Illness Initial Comments: The pt is a 28F at 16 weeks by LMP who presents for evaluation of 2 days of LLQ/L pelvic pain. The pt reports the pain is achy/cramping, intermittent, non-radiating, not associated with any other symptoms, and not exacerbated by anything she can identify, and mildly alleviated by Tylenol. She denies fevers/chills, chest pain, trouble breathing, diarrhea, dysuria, hematuria, vaginal bleeding/discharge, or blood in her stool. +Vomiting x2 yesterday not associated with pain. Pt has had 3-4 episodes of vomiting during her 12/06/18 01:32 Past History - Past Medical History Allergies/Adverse Reactions: Allergies Allergy/AdvReac Type Severity Reaction Status Date / Time strawberry Allergy Verified 12/06/18 00:44 SEAFOOD Allergy Vomiting Uncoded 12/06/18 00:44 Home Medications: Ambulatory Orders Multivitamin [Poly-Vitamin] 14 tab PO DAILY 06/14/17 Calcium Carbonate/Vitamin D3 [Calcium 500 + Vit D Caplet] 1 each PO BID Ferrous Sulfate 325 mg PO DAILY 06/27/17 Nitrofurantoin Monohyd/M-Cryst [Macrobid -] 100 mg PO BID #14 capsule 12/06/18 Asthma: Yes COPD: No - Surgical History Abdominal Surgery: Yes (GASTRIC SLEEVE) - Immunization History Immunization Up to Date: Yes - Psycho Social/Smoking Cessation Hx Smoking Status: No Smoking History: Never smoked Have you smoked in the past 12 months: No Number of Cigarettes Smoked Daily: 0 Information on smoking cessation initiated: No Hx Alcohol Use: No Drug/Substance Use Hx: No Substance Use Type: None Review of Systems - Review of Systems Able to Perform ROS?: Yes Comments:: GENERAL/CONSTITUTIONAL: No fever or chills. No weakness HEAD, EYES, EARS, NOSE AND THROAT: No change in vision. No change in hearing. No sore throat CARDIOVASCULAR: No chest pain or shortness of breath RESPIRATORY: Denies cough, hemoptysis GASTROINTESTINAL: +intermittent N/V associated w/ , last yesterday; diarrhea or constipation GENITOURINARY: No dysuria, frequency, or change in urination MUSCULOSKELETAL: No joint or muscle swelling or pain. No neck or back pain SKIN: No rash NEUROLOGIC: No headache, vertigo, loss of consciousness, or change in strength/ sensation ENDOCRINE: No increased thirst. No abnormal weight change HEMATOLOGIC/LYMPHATIC: No anemia, easy bleeding, or history of blood clots ALLERGIC/IMMUNOLOGIC: No hives or skin allergy 12/06/18 01:12 Is the patient limited Amharic proficient: No *Physical Exam - Vital Signs Last Vital Signs Temp Pulse Resp BP Pulse Ox 98.4 F 82 16 120/81 100 12/05/18 23:30 12/05/18 23:30 12/05/18 23:30 12/05/18 23:30 12/05/18 23:30 - Physical Exam Comments: GENERAL: Awake, alert, and oriented to person/place/time, in no acute distress HEAD: No signs of trauma, normocephalic, atraumatic EYES: PERRLA, EOMI, sclera anicteric, conjunctiva clear ENT: Hearing grossly normal, nares patent, oropharynx clear without exudates. Moist mucosa LUNGS: No distress, speaks in full sentences, clear to auscultation bilaterally HEART: Regular rate and rhythm, normal S1 and S2, no murmurs appreciated, peripheral pulses normal and equal bilaterally ABDOMEN: Soft, RLQ TTP w/o rebound or guarding, normoactive bowel sounds. No guarding, no rebound PELVIC: Normal vaginal discharge seen, os closed, no blood observed, no CMT, no adenexal tenderness or masses palpated EXTREMITIES: Normal inspection, Normal range of motion, no edema. No clubbing or cyanosis NEUROLOGICAL: Cranial nerves II through XII grossly intact. Normal speech, no focal sensorimotor deficits SKIN: Warm, Dry 12/06/18 01:12 ED Treatment Course - LABORATORY CBC & Chemistry Diagram: 12/06/18 03:30 12/06/18 03:30 Medical Decision Making - Medical Decision Making The pt is a 28F at 16 weeks by LMP who presents for evaluation of 2 days of LLQ/L pelvic pain. ED Course Pelvic US, RLQ US, RUQ US CMP, CBC, T/S, Beta quant, UA, UCx Tylenol for pain 12/06/18 01:40 No leukocytosis No anemia Lytes unremarkable No MICHELLE LFTs wnl Beta 14521 UA w/ evidence of UTI -Macrobid 100mg PO once -Rx for Macrobid sent to pt's pharmacy Plan for D/C w/ OB f/u Referral for general surgery given for sludge seen in gallbladder Discharge instructions and return precautions given Pt in agreement and verbalized understanding Dispo: home 12/06/18 04:59 Discharge - Discharge Information Problems reviewed: Yes Clinical Impression/Diagnosis: UTI (urinary tract infection) Qualifiers: Urinary tract infection type: site unspecified Hematuria presence: without hematuria Qualified Code(s): N39.0 - Urinary tract infection, site not specified Abdominal pain Qualifiers: Abdominal location: right lower quadrant Qualified Code(s): R10.31 - Right lower quadrant pain Condition: Improved Disposition: HOME - Admission No - Additional Discharge Information Prescriptions: Nitrofurantoin Monohyd/M-Cryst [Macrobid -] 100 mg PO BID #14 capsule - Follow up/Referral Referrals: Issac Pettit [Primary Care Provider] - Loc Cao MD [Staff Physician] - - Patient Discharge Instructions Patient Printed Discharge Instructions: DI for Urinary Tract Infection (UTI) Additional Instructions: You were seen in the Emergency Department for evaluation of abdominal pain. You were found to have a urinary tract infection and given a dose of Macrobid in the Emergency Department. A prescription for Macrobid was sent to your pharmacy , take as directed. Review the handout provided at discharge. Follow up with your OB this week. A referral for general surgery was given because the ultrasound was notable for sludge in your gallbladder and you may develop gallstones or gallbladder pain during or after . Follow up with them if needed. Return to the Emergency Department if you develop fevers/chills, chest pain, trouble breathing, lightheadedness, vaginal bleeding/discharge, worsening symptoms, or any new/concerning symptoms. - Post Discharge Activity
[2018-12-06] MEDS ORDERED: ACETAMINOPHEN 325 MG TABLET (FP) PO ONE (01:40)
[2018-12-06] MEDS ORDERED: ACETAMINOPHEN 325 MG TABLET (FP) ONE (02:18)
[2018-12-06 03:42] LABS: BASO % 0.6 % (0-2.0); EOS % 2.7 % (0-4.5); HEMATOCRIT 33.2 % (32.4-45.2); HEMOGLOBIN 11.5 GM/dL (10.7-15.3); LYMPH % 24.4 % (8-40); MCH 31.3 pg (25.7-33.7); MCHC 34.5 g/dl (32.0-36.0); MEAN CELL VOLUME 90.8 fl (80-96); MEAN PLT VOLUME 8.2 fl (7.5-11.1); MONO % 6.7 % (3.8-10.2); NEUT % 65.6 % (42.8-82.8); PLATELET COUNT 209 K/MM3 (134-434); RBC 3.66 M/mm3 (3.60-5.2); RDW 12.9 % (11.6-15.6); WHITE BLOOD COUNT 8.1 K/mm3 (4.0-10.0)
[2018-12-06 04:03] LABS: ALBUMIN 2.8 g/dl (3.4-5.0); BILIRUBIN,TOTAL 0.2 mg/dL (0.2-1); CALCIUM 8.4 mg/dL (8.5-10.1); CREATININE 0.4 mg/dL (0.55-1.3); POTASSIUM 3.6 mmol/L (3.5-5.1); TOT PROT 5.8 g/dl (6.4-8.2)
[2018-12-06 04:05] LABS: EPI CELLS 3.1 /HPF (0-5/HPF); HYALINE CASTS 35 /lpf (0-8); PH,URINE 5.5 (5.0-8.0); URINE APPEARANCE CLOUDY; URINE BILIRUBIN 1+ (NEGATIVE); URINE COLOR DK YELLOW; URINE GLUCOSE (UA) NEGATIVE (NEGATIVE); URINE KETONE NEGATIVE (NEGATIVE); URINE LEUK ESTERASE 2+ (NEGATIVE); URINE NITRITE NEGATIVE (NEGATIVE); URINE PROTEIN TRACE (NEGATIVE); URINE RBC 2 /hpf (0-4); URINE WBC 49 /hpf (0-5)
[2018-12-06] MEDS ORDERED: NITROFURANTOIN MACROCRYSTAL 50 MG CAPSULE (FP) PO SCH (05:00)
[2018-12-06] MEDS ORDERED: NITROFURANTOIN MACROCRYSTAL 50 MG CAPSULE (FP) ONE (05:10)
== END 2018-12-06 05:13 | disposition home or self-care (01) ==
LOC: JER 23:28
DX: O26.892 Other specified pregnancy related conditions, second trimester (principal); O23.42 Unspecified infection of urinary tract in pregnancy, second trimester; Z3A.16 16 weeks gestation of pregnancy; Z91.013 Allergy to seafood; Z91.018 Allergy to other foods
CPT/HCPCS: 36415; 76705-TC; 76810-TC; 76856-TC; 80053; 81003; 84702; 85025; 86850; 86900; 86901; 87086; 99282-25

== ENCOUNTER 2019-02-22 13:12 | Emergency (ER) | payer OTHER ==
[2019-02-22] MEDS ORDERED: ACETAMINOPHEN 325 MG TABLET (FP) PO ONE (13:28)
--- NOTE | 2019-02-22 13:32 | PDOC ---
History of Present Illness - General Chief Complaint: Back Pain Stated Complaint: BACK PAIN/24 W PREG Time Seen by Provider: 02/22/19 13:21 History Source: Patient Exam Limitations: No Limitations Past History - Past Medical History Allergies/Adverse Reactions: Allergies Allergy/AdvReac Type Severity Reaction Status Date / Time strawberry Allergy Verified 12/06/18 00:44 SEAFOOD Allergy Vomiting Uncoded 12/06/18 00:44 Home Medications: Ambulatory Orders Multivitamin [Poly-Vitamin] 14 tab PO DAILY 06/14/17 Calcium Carbonate/Vitamin D3 [Calcium 500 + Vit D Caplet] 1 each PO BID Ferrous Sulfate 325 mg PO DAILY 06/27/17 Nitrofurantoin Monohyd/M-Cryst [Macrobid -] 100 mg PO BID #14 capsule 12/06/18 Asthma: Yes COPD: No - Surgical History Abdominal Surgery: Yes (GASTRIC SLEEVE) - Immunization History Immunization Up to Date: Yes - Psycho Social/Smoking Cessation Hx Smoking Status: No Smoking History: Never smoked Have you smoked in the past 12 months: No Number of Cigarettes Smoked Daily: 0 Hx Alcohol Use: No Drug/Substance Use Hx: No Substance Use Type: None *Physical Exam - Physical Exam General Appearance: No: Apparent Distress Respiratory/Chest: positive: Lungs Clear, Normal Breath Sounds. negative: Respiratory Distress Cardiovascular: positive: Regular Rhythm, Regular Rate, S1, S2. negative: Murmur Gastrointestinal/Abdominal: positive: Soft, Other (gravid abdomen) Musculoskeletal: negative: Muscle Spasm, Vertebral Tenderness Neurologic: positive: Alert, Other (normal gait) Medical Decision Making - Medical Decision Making 28 y/o F hx of asthma, gastric sleeve, currently 24 weeks presents with 1/10 low back pain from last night. Believes pain is due to how she slept last night. Denies trauma. Came to ER as she wasn't sure what she can take for pain. Denies fever, sob, cp, abd pain, n/v, hematuria, vaginal bleeding. PE unremarkable Given Tylenol Will send to OB for FHR 02/22/19 13:31 Discharge - Discharge Information Problems reviewed: Yes Clinical Impression/Diagnosis: Low back pain Qualifiers: Chronicity: acute Back pain laterality: unspecified Sciatica presence: without sciatica Qualified Code(s): M54.5 - Low back pain Condition: Stable Disposition: HOME - Admission No - Additional Discharge Information Prescription Drug Monitoring Program (I-STOP) results: I-STOP not reviewed - Follow up/Referral - Patient Discharge Instructions Patient Printed Discharge Instructions: DI for Low Back Pain Additional Instructions: Thank you for choosing [facility]. It was a pleasure taking care of you. 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 - Post Discharge Activity
[2019-02-22] MEDS ORDERED: ACETAMINOPHEN 325 MG TABLET (FP) ONE (13:45)
[2019-02-22 14:10] VITALS: BMI 36.2
[2019-02-22 14:53] VITALS: BP 117/74; PULSE 73; TEMP 97.7
[2019-02-22 15:00] LABS: HEMATOCRIT 33.3 % (32.4-45.2); MCH 29.7 pg (25.7-33.7); MCHC 32.9 g/dl (32.0-36.0); MEAN PLT VOLUME 8.7 fl (7.5-11.1); PLATELET COUNT 175 K/MM3 (134-434); RDW 11.9 % (11.6-15.6); WHITE BLOOD COUNT 6.3 K/mm3 (4.0-10.0)
[2019-02-22 15:12] LABS: INR 1.03 (0.83-1.09); PROTHROMBIN TIME (PATIENT) 12.2 SEC (9.7-13.0)
--- NOTE | 2019-02-22 15:48 | CONSULT ---
Past Medical History, Laborist - Primary Care Physician PCP:: Rosanna Rojo (Twins 27 weeks.) - Admission Chief Complaint: -Admitted for eval from ED w severe back pain, r/o PTL History of Present Illness: Twin gestation with EDC 05.22.2019. Woke up this AM with BA. Considered high risk. PTL is a risk with twins. 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 Weeks Gestation by Dates: .3 ...EDC by Dates: 05/22/19 Heme/Onc: Denies/None Infectious Disease: Denies/None Psych: Denies/None Musculoskeletal: Denies/None Rheumatology: Denies/None ENT: Denies/None Endocrine: Denies/None Dermatology: Denies/None - Past Surgical History Past Surgical History: Yes: Bariatric Surgery (sleeve 2018. weight down from 400 lbs to 260.) - Smoking History Smoking history: Never smoked Have you smoked in the past 12 months: No Aproximately how many cigarettes per day: 0 - Alcohol/Substance Use Hx Alcohol Use: No Review of Systems - Review of Systems Constitutional: reports: No Symptoms Eyes: reports: No Symptoms HENT: reports: No Symptoms Neck: reports: No Symptoms Cardiovascular: reports: No Symptoms Respiratory: reports: No Symptoms Gastrointestinal: reports: No Symptoms Genitourinary: reports: No Symptoms Breasts: reports: No Symptoms Reported Musculoskeletal: reports: No Symptoms Integumentary: reports: No Symptoms Neurological: reports: No Symptoms Endocrine: reports: No Symptoms Hematology/Lymphatic: reports: No Symptoms Psychiatric: reports: No Symptoms Physical Exam - Maternity Vital Signs: Vital Signs Temperature 97.7 F 02/22/19 14:26 Pulse Rate 73 02/22/19 14:26 Respiratory Rate 18 02/22/19 14:26 Blood Pressure 117/74 02/22/19 14:26 O2 Sat by Pulse Oximetry (%) 100 12/25/19 13:15 Constitutional: Yes: Well Nourished, No Distress, Calm Eyes: Yes: WNL, Conjunctiva Clear, EOM Intact HENT: Yes: WNL, Atraumatic, Normocephalic Neck: Yes: WNL, Supple, Trachea Midline Cardiovascular: Yes: WNL, Regular Rate and Rhythm Breast(s): Yes: WNL - Abdominal Exam/OB Number of Fetuses: Single Presentation: Vertex Contractions: No Monitor Mode: External Heart Rate Location: RU Category: I Accelerations: Non-Uniform Decelerations: None - Vaginal Exam/OB Vaginal Bleediing: No Speculum Exam: No Dilatation (cm): 0 Effacement (%): 0 Amniotic Membrane Status: Intact Presentation: Vertex/Position Station: -3 - Physical Exam Musculoskeletal: Yes: WNL Extremities: Yes: WNL Edema: No Integumentary: Yes: WNL ...Motor Strength: WNL Psychiatric: Yes: WNL - Labs Lab Results: CBC, BMP 02/22/19 14:40 Problem List - Problems (1) Lower back pain Code(s): M54.5 - LOW BACK PAIN Qualifiers: Chronicity: acute Back pain laterality: unspecified Sciatica presence: without sciatica Qualified Code(s): M54.5 - Low back pain (2) with 27 completed weeks gestation Code(s): Z3A.27 - 27 WEEKS GESTATION OF Assessment/Plan Admitted w BA; R/O PTL. Prolonged xt. monitoring - no ctx. Some acceleration. FH x 2, difficult to maintain due to small gestational age and movements. PE unremarkable. Uterus soft, about 30 - 32 wks size. No bleeding, no fluid. Cx long, closed, posterior. Breech? High. Bedside sono done. Live twins. Good FH x 2. Good FM x 2. Breech/transverse(?). A/P: No labor. Pain improved with rest. Instructions given Reassured. F/U soon w Dr. Rojo.
[2019-02-22 16:34] LABS: EPI CELLS 11.4 /HPF (0-5/HPF); HYALINE CASTS 11 /lpf (0-8); PH,URINE 5.5 (5.0-8.0); URINE APPEARANCE CLOUDY; URINE BILIRUBIN 1+ (NEGATIVE); URINE COLOR DK YELLOW; URINE GLUCOSE (UA) NEGATIVE (NEGATIVE); URINE KETONE 1+ (NEGATIVE); URINE LEUK ESTERASE NEGATIVE (NEGATIVE); URINE NITRITE NEGATIVE (NEGATIVE); URINE PROTEIN 1+ (NEGATIVE); URINE RBC 4 /hpf (0-4); URINE WBC 2 /hpf (0-5)
[2019-02-22 17:22] LABS: URINE BACTERIA 45.8 /hpf (NEGATIVE); URINE CRYSTALS NONE SEEN /hpf
== END 2019-02-22 15:45 | disposition home or self-care (01) ==
LOC: JER 13:12
DX: O99.89 Other specified diseases and conditions complicating pregnancy, childbirth and the puerperium (principal); M54.5 Low back pain; Z3A.27 27 weeks gestation of pregnancy; Z91.013 Allergy to seafood; Z91.018 Allergy to other foods
CPT/HCPCS: 36415; 81003; 85027; 85362; 85610; 99282-25

== ENCOUNTER 2019-03-30 20:36 | Emergency (ER) | payer OTHER ==
--- NOTE | 2019-03-30 20:47 | PDOC ---
Rapid Medical Evaluation Chief Complaint: Pain Time Seen by Provider: 03/30/19 20:39 Medical Evaluation: Allergies Allergy/AdvReac Type Severity Reaction Status Date / Time strawberry Allergy Verified 03/30/19 20:43 SEAFOOD Allergy Vomiting Uncoded 02/22/19 14:06 03/30/19 20:43 CC: Pt is 31 weeks gestation with abdominal pain and b/l leg pain Pt is a 28 y/o female who is 31 weeks gestation with abdominal pain and b/ l leg pain. She has noticed some spider veins in her legs and color changes in her legs. Pain started last week. Brief exam: prominent vessels appreciated in her R leg. R>L calf pain to palpation. Orders: b/l LE dopplers, saline lock, cbc, cmp, pt to be sent to L&D after clearance for further evaluation. To ED for further evaluation Discharge Disposition - Diagnosis Abdominal pain during - Referrals - Patient Instructions - Post Discharge Activity
[2019-03-30 20:50] VITALS: TEMP 97.7; BMI 38.9
--- NOTE | 2019-03-30 21:32 | PDOC ---
Attending Attestation - Resident Resident Name: PamelaGia - ED Attending Attestation I have performed the following: I have examined & evaluated the patient, The case was reviewed & discussed with the resident, I agree w/resident's findings & plan, Exceptions are as noted - HPI HPI: 03/30/19 21:27 28 F, @ 31 weeks with twins, presenting to ED with BLE swelling. Pt states that she has gotten more swollen around both her ankles over the past several days, with the R slightly worse than the L. Pt notes that it is painful and feels tight. Denies any recent travel/immobilization. Pt also complains of increasing tightness in her abdomen. Denies any focal pain. Denies N/V. Denies F /C. - Physicial Exam PE: 03/30/19 21:32 "GENERAL: Awake, alert, and fully oriented, in no acute distress. HEAD: No signs of trauma EYES: PERRLA, EOMI, sclera anicteric, conjunctiva clear ENT: Auricles normal inspection, hearing grossly normal, nares patent, oropharynx clear without exudates. Moist mucosa NECK: Nontender, no stepoffs, Normal ROM, supple, no lymphadenopathy, JVD, or masses LUNGS: Breath sounds equal, clear to auscultation bilaterally. No wheezes, and no crackles HEART: Regular rate and rhythm, normal S1 and S2, no murmurs, rubs or gallops ABDOMEN: + Gravid, nontender, normoactive bowel sounds. No guarding, no rebound. No masses EXTREMITIES: + 1 edema BLE, No clubbing or cyanosis. No cords, erythema, or tenderness NEUROLOGICAL: Cranial nerves II through XII intact. 5/5 strength and sensation in all extremities, Normal speech, normal gait, normal cerebellar function SKIN: Warm, Dry, normal turgor, no rashes or lesions noted. - Medical Decision Making 03/30/19 21:32 28 F with BLE swelling. Will r/o DVT. Will check for proteinuria, assess renal function. Pt with no evidence of pre-eclampsia, BP wnl, abdomen benign. No evidence of heart failure. Pt denies any CP/SOB. - Labs - UA, UCx - BLE duplex 03/31/19 00:29 Dopplers negative for DVT UA concerning for UTI, will start macrobid Labs otherwise unremarkable Pt is well appearing, with normal vitals. Clinically stable for DC at this time. I discussed the physical exam findings, ancillary test results and final diagnoses with the patient. I answered all of the patient's questions. The patient was satisfied with the care received and felt comfortable with the discharge plan and treatment plan. The patient agrees to follow up with the primary care physician within 24-72 hours.
--- NOTE | 2019-03-30 21:32 | PDOC ---
History of Present Illness - General Chief Complaint: Pain Stated Complaint: 7 MONTH HAVING PAIN Time Seen by Provider: 03/30/19 20:39 History Source: Patient Exam Limitations: No Limitations - History of Present Illness Initial Comments: 03/30/19 21:29 28y F at 31w with twin gestation, PMH of Asthma presenting to ED with complaints of bilateral leg swelling and pain x1 week. Pt states that she has had swollen legs throughout the but noticed it getting worse over the past week with superficial veins showing up and purple discoloration of the veins/skin. Endorses pain in the ankles bilaterally. She was worried about a blood clot. Pt states that she feels short of breath but attributes it to her gaining weight after losing roughly 200lb from gastric sleeve surgery 2y ago. Pt endorses some abdominal pain but attributes that to the . Denies chest pain, fever, chills, n/v/d, vaginal bleeding, leakage of fluid, urinary symptoms, syncope. No history of blood clots in her or the family. PMD: Wilver PMH: see hpi PSH: see hpi Meds: albuterol Allergies: nkda Past History - Past Medical History Allergies/Adverse Reactions: Allergies Allergy/AdvReac Type Severity Reaction Status Date / Time strawberry Allergy Verified 03/30/19 20:43 SEAFOOD Allergy Vomiting Uncoded 02/22/19 14:06 Home Medications: Ambulatory Orders Multivitamin [Poly-Vitamin] 14 tab PO DAILY 06/14/17 Calcium Carbonate/Vitamin D3 [Calcium 500 + Vit D Caplet] 1 each PO BID Ferrous Sulfate 325 mg PO DAILY 06/27/17 Nitrofurantoin Monohyd/M-Cryst [Macrobid -] 100 mg PO BID #14 capsule 12/06/18 Cephalexin Monohydrate [Keflex -] 500 mg PO BID #10 capsule 03/30/19 Asthma: Yes COPD: No - Surgical History Abdominal Surgery: Yes (GASTRIC SLEEVE) - Immunization History Immunization Up to Date: Yes - Psycho Social/Smoking Cessation Hx Smoking Status: No Smoking History: Never smoked Have you smoked in the past 12 months: No Number of Cigarettes Smoked Daily: 0 Hx Alcohol Use: No Drug/Substance Use Hx: No Substance Use Type: None Review of Systems - Review of Systems Constitutional: No: Symptoms Reported HEENTM: No: Symptoms Reported Respiratory: Yes: See HPI Cardiac (ROS): No: Symptoms Reported ABD/GI: Yes: See HPI : No: Symptoms Reported Musculoskeletal: Yes: See HPI Integumentary: Yes: See HPI Neurological: No: Symptoms reported *Physical Exam - Vital Signs Last Vital Signs Temp Pulse Resp BP Pulse Ox 97.7 F 86 17 126/86 98 03/30/19 20:44 03/30/19 20:44 03/30/19 20:44 03/30/19 20:44 03/30/19 20:44 - Physical Exam General Appearance: Yes: Appropriately Dressed, Obese. No: Apparent Distress HEENT: positive: EOMI, CRISTOBAL, Normal ENT Inspection Neck: positive: Trachea midline, Supple Respiratory/Chest: positive: Lungs Clear, Normal Breath Sounds. negative: Paradoxal Breathing, Crackles, Rales, Rhonchi, Stridor, Wheezing Cardiovascular: positive: Regular Rhythm, Regular Rate, S1, S2. negative: Edema , JVD, Murmur Gastrointestinal/Abdominal: positive: Normal Bowel Sounds, Soft, Other (gravid) . negative: Tender Musculoskeletal: negative: CVA Tenderness Extremity: positive: Normal Capillary Refill, Pelvis Stable, Pedal Edema. negative: Cyanosis, Swelling, Calf Tenderness Integumentary: positive: Normal Color, Dry, Warm Neurologic: positive: delinquent account clerk II-XII NML intact, Fully Oriented, Alert, Normal Mood/ Affect, Normal Response, Motor Strength 5/5 ED Treatment Course - LABORATORY CBC & Chemistry Diagram: 03/30/19 21:05 03/30/19 21:05 - ADDITIONAL ORDERS Additional order review: 03/30/19 21:05 RBC Cancelled MCV Cancelled MCHC Cancelled RDW Cancelled MPV Cancelled Neutrophils % Cancelled Lymphocytes % Cancelled Monocytes % Cancelled Eosinophils % Cancelled Basophils % Cancelled Medical Decision Making - Medical Decision Making 03/30/19 23:20 28y F at 31w with twin gestation presenting with ble edema and superficial veins. vitals wnl low suspicion for pe. likely swelling due to . doppler studies and basic labs ordered by rme. will add bnp to r/o chf/cardiomyopathy. labs wnl. cbc qns however does not need cbc; low suspicion for anemia/ infection. ua positive for infection, will treat here with keflex and rx sent to pharmacy. pending dopper studies; if negative, pt can go to l&d. 03/31/19 00:33 doppler negative for dvt. pt does not have any other complaints at this time. Does not want to go to LD right now. safe for dc home. given return precautions. Discharge - Discharge Information Problems reviewed: Yes Clinical Impression/Diagnosis: Abdominal pain during Qualifiers: Trimester: third trimester Qualified Code(s): O26.893 - Other specified related conditions, third trimester Leg swelling in Qualifiers: Trimester: third trimester Qualified Code(s): O12.03 - Gestational edema, third trimester Condition: Good Disposition: HOME - Admission No - Additional Discharge Information Prescriptions: Cephalexin Monohydrate [Keflex -] 500 mg PO BID #10 capsule - Follow up/Referral Referrals: Issac Pettit [Primary Care Provider] - - Patient Discharge Instructions Additional Instructions: You were seen in the emergency room today for leg swelling and abdominal pain, this is likely due to . Make sure you keep your Social Sciences Instructor appointments. A prescription for an antibiotic was sent to your pharmacy, take as directed. I recommend wearing compression stockings and elevating your legs when you are sitting and propping a pillow under your legs when you are in bed to reduce swelling. Come back to the emergency room if you experience contractions, worsening shortness of breath, chest pain, vaginal bleeding, your water breaks or if any new or concerning symptom develops. Thank you - Post Discharge Activity
[2019-03-30 21:53] LABS: ALBUMIN 2.6 g/dl (3.4-5.0); BILIRUBIN,TOTAL 0.3 mg/dL (0.2-1); CALCIUM 8.5 mg/dL (8.5-10.1); CREATININE 0.4 mg/dL (0.55-1.3); POTASSIUM 3.7 mmol/L (3.5-5.1); TOT PROT 6.1 g/dl (6.4-8.2)
[2019-03-30 22:14] LABS: N-TERMINAL BNP 13.7 pg/ml (5-125)
[2019-03-30 22:25] LABS: HYALINE CASTS 21 /lpf (0-8); URINE APPEARANCE CLOUDY; URINE BACTERIA 693.3 /hpf (NEGATIVE); URINE BILIRUBIN 1+ (NEGATIVE); URINE COLOR DK YELLOW; URINE GLUCOSE (UA) NEGATIVE (NEGATIVE); URINE KETONE TRACE (NEGATIVE); URINE LEUK ESTERASE 2+ (NEGATIVE); URINE NITRITE NEGATIVE (NEGATIVE); URINE PROTEIN TRACE (NEGATIVE); URINE RBC 2 /hpf (0-4); URINE WBC 14 /hpf (0-5)
[2019-03-30] MEDS ORDERED: CEPHALEXIN MONOHYDRATE 500 MG CAPSULE (UD) PO ONE (22:35)
[2019-03-30] MEDS ORDERED: CEPHALEXIN MONOHYDRATE 500 MG CAPSULE (UD) ONE (22:59)
[2019-03-31 01:06] VITALS: BP 135/81; PULSE 82
== END 2019-03-31 00:45 | disposition home or self-care (01) ==
LOC: JER 20:36
DX: O26.893 Other specified pregnancy related conditions, third trimester (principal); R10.9 Unspecified abdominal pain; O12.03 Gestational edema, third trimester; O23.43 Unspecified infection of urinary tract in pregnancy, third trimester; Z3A.31 31 weeks gestation of pregnancy; Z98.84 Bariatric surgery status
CPT/HCPCS: 36415; 80053; 81003; 83880; 87086; 93970-TC; 99283-25

== ENCOUNTER 2020-05-04 11:50 | Emergency (ER) | payer OTHER ==
[2020-05-04 12:06] VITALS: BP 139/94; PULSE 84; TEMP 99.1; BMI 35.6
[2020-05-04] MEDS ORDERED: IBUPROFEN 600 MG TABLET (FP) PO ONE ×2 (12:07→12:12)
== END 2020-05-04 12:56 | disposition home or self-care (01) ==
LOC: FER 11:50
DX: S06.0X0A Concussion without loss of consciousness, initial encounter (principal); G44.319 Acute post-traumatic headache, not intractable; M54.5 Low back pain
CPT/HCPCS: 99284-25

== ENCOUNTER 2020-08-20 17:10 | Emergency (ER) | payer OTHER ==
[2020-08-20 17:24] VITALS: BP 140/99; PULSE 77; TEMP 98.7; BMI 33.0
[2020-08-20] MEDS ORDERED: ACETAMINOPHEN 500 MG TABLET (FP) PO ONE (17:47)
[2020-08-20] MEDS ORDERED: LIDOCAINE 5% TOPICAL PATCH TP ONE (17:48)
[2020-08-20] MEDS ORDERED: METHOCARBAMOL 500 MG TABLET PO ONE (17:48)
[2020-08-20] MEDS ORDERED: ACETAMINOPHEN 500 MG TABLET (FP) ONE (17:56)
[2020-08-20] MEDS ORDERED: LIDOCAINE 5% TOPICAL PATCH ONE (17:56)
[2020-08-20] MEDS ORDERED: METHOCARBAMOL 500 MG TABLET ONE (17:56)
[2020-08-20 18:31] LABS: EPITHELIAL CELLS FEW /hpf
[2020-08-20] MEDS ORDERED: LIDOCAINE PATCH REMOVAL MC SCH (22:00)
== END 2020-08-20 20:05 | disposition home or self-care (01) ==
LOC: FER 17:10
DX: R51.9 Headache, unspecified (principal); S16.1XXA Strain of muscle, fascia and tendon at neck level, initial encounter; S39.012A Strain of muscle, fascia and tendon of lower back, initial encounter
CPT/HCPCS: 70450-TC; 72070-TC-FY; 72100-TC-FY; 72125-TC; 81003; 81015; 81025; 99285-25

== ENCOUNTER 2020-10-04 22:27 | Emergency (ER) | payer OTHER ==
[2020-10-04 22:33] VITALS: BP 136/96; PULSE 80; TEMP 98.6; BMI 33.9
[2020-10-04] MEDS ORDERED: ACETAMINOPHEN 500 MG TABLET (FP) PO ONE (22:46)
[2020-10-04] MEDS ORDERED: ACETAMINOPHEN 500 MG TABLET (FP) ONE (23:04)
== END 2020-10-05 01:21 | disposition home or self-care (01) ==
LOC: FER 22:27
DX: S06.0X0A Concussion without loss of consciousness, initial encounter (principal); W22.8XXA Striking against or struck by other objects, initial encounter; Y04.0XXA Assault by unarmed brawl or fight, initial encounter; Y92.149 Unspecified place in prison as the place of occurrence of the external cause
CPT/HCPCS: 70450-TC; 99284-25

== ENCOUNTER 2021-02-24 05:33 | Emergency (ER) | payer OTHER ==
[2021-02-24 05:45] VITALS: BP 128/91; PULSE 102; TEMP 99; BMI 39.6
[2021-02-26 01:06] LABS: SARS-CoV-2 NAA Detected (Not Detected)
== END 2021-02-24 06:26 | disposition home or self-care (01) ==
LOC: FER 05:33
DX: R50.9 Fever, unspecified (principal); R51.9 Headache, unspecified
CPT/HCPCS: 99283-25; C9803; U0003; U0005

== ENCOUNTER 2022-04-27 04:09 | Day surgery (SDC) | payer OTHER ==
[2022-04-24 09:56] VITALS: BMI 34.7
[~2022-04-27 04:09] MED LIST: BUPIVACAINE HCL/PF 0.25% (2.5MG/ML) 10 ML VIAL IJ ONE; DEXAMETHASONE SOD PHOSPHATE 10 MG/1 ML VIAL IVPUSH ONE; IOHEXOL 180 MG/1 ML ML IJ ONE; LIDOCAINE HCL 1%, 10 MG/ML (20ML VIAL) NR ONE
[2022-04-27] MEDS ORDERED: LIDOCAINE HCL/PF 1% SDV 5ML VIAL ONE (07:14)
[2022-04-27] MEDS ORDERED: BUPIVACAINE HCL/PF 0.75% 10 ML VIAL ONE (07:14)
[2022-04-27] MEDS ORDERED: DEXAMETHASONE SOD PHOSPHATE 10 MG/1 ML VIAL ONE (07:15)
[2022-04-27] MEDS ORDERED: BUPIVACAINE HCL/PF 0.25% (2.5MG/ML) 10 ML VIAL ONE (09:05)
[2022-04-27] MEDS ORDERED: LIDOCAINE HCL 1%, 10 MG/ML (20ML VIAL) ONE (09:05)
[2022-04-27] MEDS ORDERED: MIDAZOLAM HCL 2 MG/2 ML SINGLE DOSE VIAL ONE (09:06)
[2022-04-27] MEDS ORDERED: SODIUM CHLORIDE 0.9% P/F 10 ML VIAL IJ ONE ×2 (09:09→09:11)
[2022-04-27] MEDS ORDERED: LIDOCAINE HCL 1%, 10 MG/ML (20ML VIAL) NR ONE (09:29)
[2022-04-27] MEDS ORDERED: BUPIVACAINE HCL/PF 0.25% (2.5MG/ML) 10 ML VIAL IJ ONE (09:31)
[2022-04-27] MEDS ORDERED: DEXAMETHASONE SOD PHOSPHATE 10 MG/1 ML VIAL IVPUSH ONE (09:31)
[2022-04-27 09:53] VITALS: RESP 20
[2022-04-27 11:35] VITALS: BP 130/84; PULSE 70; TEMP 98
== END 2022-04-27 11:10 | disposition home or self-care (01) ==
LOC: JASU-SURG 04:09
PROVIDERS: ATTEND Physical Medicine & Rehabilitation
PROC: 3E0R3BZ Introduction of Anesthetic Agent into Spinal Canal, Percutaneous Approach (ICD-10-PCS; 2022-04-27)
PROC: 3E0R33Z Introduction of Anti-inflammatory into Spinal Canal, Percutaneous Approach (ICD-10-PCS; principal; 2022-04-27 09:00)
DX: M54.16 Radiculopathy, lumbar region (principal); M54.50 Low back pain, unspecified
CPT/HCPCS: 81025; J1100

== ENCOUNTER 2023-01-20 18:48 | Emergency (ER) | payer OTHER ==
[2023-01-20] MEDS: ALBUTEROL SO4 2.5/IPRATROPIUM 0.5 INH SOL 3 ML VIAL.NEB. NEB SCH ×4 (18:50→19:35)
[2023-01-20] MEDS ORDERED: ALBUTEROL SO4 2.5/IPRATROPIUM 0.5 INH SOL 3 ML VIAL.NEB. NEB ONE (18:59)
[2023-01-20 19:12] VITALS: BP 129/88; PULSE 66; RESP 18; TEMP 98.4; BMI 32.4
[2023-01-20] MEDS ORDERED: predniSONE 20 MG TABLET (UD) PO ONE (20:15)
[2023-01-20] MEDS ORDERED: predniSONE 20 MG TABLET (UD) ONE (20:19)
== END 2023-01-20 20:23 | disposition home or self-care (01) ==
LOC: FER 18:48
PROC: 3E0F7GC Introduction of Other Therapeutic Substance into Respiratory Tract, Via Natural or Artificial Opening (ICD-10-PCS; principal; 2023-01-20)
DX: J45.901 Unspecified asthma with (acute) exacerbation (principal)
CPT/HCPCS: 99283-25

== ENCOUNTER 2023-06-28 16:55 | Emergency (ER) | payer OTHER ==
[2023-06-28 17:03] VITALS: BP 141/101; PULSE 70; RESP 18; TEMP 98.9; BMI 36.3
[2023-06-28] MEDS: ALBUTEROL SO4 2.5/IPRATROPIUM 0.5 INH SOL 3 ML VIAL.NEB. NEB ONE (17:05)
[2023-06-28] MEDS ORDERED: ALBUTEROL SO4 2.5/IPRATROPIUM 0.5 INH SOL 3 ML VIAL.NEB. NEB ONE (17:21)
[2023-06-28] MEDS ORDERED: DEXAMETHASONE SOD PHOSPHATE 10 MG/1 ML VIAL ONE (17:21)
[2023-06-28] MEDS: DEXAMETHASONE 4 MG TABLET (FP) PO ONE (17:26)
== END 2023-06-28 17:57 | disposition home or self-care (01) ==
LOC: FER 16:55
PROC: 3E0F7GC Introduction of Other Therapeutic Substance into Respiratory Tract, Via Natural or Artificial Opening (ICD-10-PCS; principal; 2023-06-28)
DX: R06.02 Shortness of breath (principal); J45.31 Mild persistent asthma with (acute) exacerbation
CPT/HCPCS: 99283-25